=== PATIENT | male | born 1940 | race Caucasian/White ===

== ENCOUNTER 2018-05-25 23:26 | Emergency (ER) | payer MEDICARE, MEDICAID ==
[~2018-05-25] VITALS: Ht 165.1 cm; Wt 65.8 kg
[~2018-05-25 23:26] MED LIST: ACET-2812 PO; ALBU1.257 NEB; ATOR20TA PO; CLOP75TA15 PO; CYAN500L3 PO; FAMO20TA8 PO; FERR142T6 PO; GABA-532 PO; HYDR-4384 PO; INSU100V SQ; INSU100V10 SQ; IPRA0.2S6 NEB; METO25TA6 PO; NITR0.4T48 SL; SENN-168 PO
[2018-05-26] MEDS ORDERED: NA P133E RC (00:01)
[2018-05-26] MEDS ORDERED: MULT-213 PO (00:01)
[2018-05-26] MEDS ORDERED: FOLI1TAB16 PO (00:01)
[2018-05-26] MEDS ORDERED: AMIT25TA9 PO (00:01)
[2018-05-26] MEDS ORDERED: METO25TA6 PO (00:01)
[2018-05-26] MEDS ORDERED: CLOP75TA15 PO (00:01)
[2018-05-26] MEDS ORDERED: LORA10TA7 PO (00:01)
[2018-05-26] MEDS ORDERED: BISA10SU12 RC (00:01)
[2018-05-26] MEDS ORDERED: METF-440 PO (00:01)
[2018-05-26] MEDS ORDERED: ESCI10TA PO (00:01)
[2018-05-26] MEDS ORDERED: INSU100I26 SQ (00:01)
[2018-05-26] MEDS ORDERED: ARGI1POW17 PO (00:01)
[2018-05-26] MEDS ORDERED: PANT40TA4 PO (00:01)
[2018-05-26] MEDS ORDERED: ATOR10TA PO (00:01)
[2018-05-26] MEDS ORDERED: MAG355OR18 PO (00:01)
[2018-05-26] MEDS ORDERED: ACET325T53 PO (00:01)
[2018-05-26] MEDS ORDERED: CLON0.5T PO (00:01)
[2018-05-26] MEDS ORDERED: DOCU100C36 PO (00:01)
[2018-05-26] MEDS ORDERED: GABA-534 PO (00:01)
[2018-05-26] MEDS ORDERED: MAGN400O6 PO (00:01)
[2018-05-26] MEDS ORDERED: OMEG1000 PO (00:01)
[2018-05-26] MEDS ORDERED: AMIN30LI27 PO (00:01)
[2018-05-26] MEDS ORDERED: ZOLP5TAB8 PO (00:01)
[2018-05-26 00:21] LABS: *BILIRUBIN,URIN NEGATIVE (NEGATIVE); *BLOOD, URINE NEGATIVE (NEGATIVE); *CLARITY,URINE CLEAR (CLEAR); *COLOR,URINE YELLOW (YELLOW); *KETONES,URINE TRACE (NEGATIVE); *UROBILINOGEN,URINE 0.2 E.U./dl (NORMAL); LEUKOCYTE ESTERASE ,URINE NEGATIVE (NEGATIVE); NITRITE, URINE NEGATIVE (NEGATIVE); PH,URINE 5.5 (5.0-8.0); UGLUCOSE NEGATIVE (NEGATIVE)
[2018-05-26 00:23] LABS: BASOPHILS % (AUTO) 0.3 % (0.0-2.0); EOSINOPHILS # (AUTO) 0.3 K/uL (0.0-0.7); EOSINOPHILS % (AUTO) 3.1 % (0.0-7.0); HEMATOCRIT 35.1 % (36.7-47.1); HEMOGLOBIN 11.8 g/dL (12.5-16.3); LYMPHOCYTES # (AUTO) 2.9 K/uL (20.0-40.0); LYMPHOCYTES % (AUTO) 29.7 % (20.5-51.5); MEAN CORPUSCULAR HEMOGLOBIN 30.5 uug (23.8-33.4); MEAN CORPUSCULAR HGB CONC 34 g/dL (32.5-36.3); MEAN CORPUSCULAR VOLUME 90.4 fL (73.0-96.2); MONOCYTES # (AUTO) 0.8 K/uL (2.0-10.0); MONOCYTES % (AUTO) 8.4 % (0.0-11.0); NEUTROPHILS # (AUTO) 5.7 K/uL (1.8-8.9); NEUTROPHILS % (AUTO) 58.5 % (38.5-71.5); PLATELET COUNT (AUTO) 196 K/uL (152-348); RED BLOOD CELL COUNT(AUTO) 3.88 MIL/uL (4.06-5.63); WHITE BLOOD COUNT (AUTO) 9.7 K/uL (3.6-10.2)
[2018-05-26 00:29] LABS: ALANINE AMINOTRANSFERASE 29 U/L (16-63); ALKALINE PHOSPHATASE 69 U/L (50-136); ASPARTATE AMINOTRANSFERASE 17 U/L (15-37); BILIRUBIN,DIRECT 0.1 mg/dL (0.0-0.2); BILIRUBIN,TOTAL 0.2 mg/dL (0.2-1.0); CARBON DIOXIDE 28 mmol/L (21-32); CHLORIDE 101 mmol/L (98-107); CREATININE 1.3 mg/dL (0.6-1.3); GLUCOSE 204 mg/dL (74-106); POTASSIUM 3.8 mmol/L (3.5-5.1); TOTAL PROTEIN, SERUM 7.7 g/dL (6.4-8.2); UREA NITROGEN, BLOOD 34 mg/dL (7-18)
[2018-05-26 00:35] LABS: ETHANOL < 3 MG/DL (0-0)
[2018-05-26 00:38] LABS: *AMPHETAMINE, URINE NEGATIVE (NEGATIVE); *BARBITURATE, URINE NEGATIVE (NEGATIVE); *CANNABINOID, URINE NEGATIVE (NEGATIVE); *COCCAINE, URINE NEGATIVE (NEGATIVE); *OPIATE, URINE NEGATIVE (NEGATIVE); *PHENCYCLIDINE SCREEN,URINE NEGATIVE (NEGATIVE)
[2018-05-26 00:47] LABS: BACTERIA,URINE NONE SEEN /HPF (NONE SEEN); RBC,URINE 0-3 /HPF (0-3); SQUAMOUS EPITHELIAL CELL,UR FEW /HPF (NONE SEEN); WBC,URINE 0-3 /HPF (0-3)
[2018-05-26 01:03] LABS: ACETAMINOPHEN < 2.0 ug/mL (10-30)
[2018-05-26 05:26] VITALS: BP 102/65
== END 2018-05-26 05:31 | disposition home or self-care (01) ==
LOC: ER 23:31
DX: Z04.6 Encounter for general psychiatric examination, requested by authority (principal); F32.9 Major depressive disorder, single episode, unspecified; I10 Essential (primary) hypertension; E78.5 Hyperlipidemia, unspecified; J44.9 Chronic obstructive pulmonary disease, unspecified; E11.9 Type 2 diabetes mellitus without complications; F41.9 Anxiety disorder, unspecified; F29 Unspecified psychosis not due to a substance or known physiological condition; Z79.899 Other long term (current) drug therapy
CPT/HCPCS: 36415; 71045; 80048; 80076; 80307; 81001; 85025; 93005; 99285; G0480 ×2; G0481; A4663